=== PATIENT | female | born 1940 ===

== ENCOUNTER → 2021-05-01 10:38 | Outpatient (BNVA) | payer OTHER, MEDICARE, SELFPAY | PROVIDERS: PCP Internal Medicine; Visit Provider Nurse Practitioner Family | DX: M47.27 Other spondylosis with radiculopathy, lumbosacral region (principal); M48.061 Spinal stenosis, lumbar region without neurogenic claudication | CPT/HCPCS: 99202 ==

== ENCOUNTER 2021-08-06 06:19 | Outpatient (REF) | payer MEDICARE, SELFPAY ==
--- NOTE | ~2021-08-06 | FL_ITS ---
EXAMINATION: XR FLUOROSCOPY WITH IMAGES CLINICAL INFORMATION: Spondylolysis with radiculopathy. Lumbosacral. COMPARISON: None. TECHNIQUE: Fluoroscopy performed by (not listed). Fluoroscopy time: 0.4 minutes DAP: 7.04 Gycm2 Images: 2 FL/FL guidance in treatment room FINDINGS/IMPRESSION: Fluoroscopy was performed for procedural guidance. Please refer to the procedure report for more detailed findings.
== END 2021-08-06 06:20 | disposition home or self-care (01) ==
LOC: HO.RADIR 06:19
PROVIDERS: Visit Provider Anesthesiology
DX: M47.27 Other spondylosis with radiculopathy, lumbosacral region (principal); M48.061 Spinal stenosis, lumbar region without neurogenic claudication
CPT/HCPCS: 64483; J3300; Q9967

== ENCOUNTER → 2021-09-04 10:19 | Outpatient (BNVA) | payer MEDICARE, SELFPAY | PROVIDERS: PCP Internal Medicine; Visit Provider Anesthesiology | DX: M47.27 Other spondylosis with radiculopathy, lumbosacral region (principal); M48.061 Spinal stenosis, lumbar region without neurogenic claudication; Z79.82 Long term (current) use of aspirin; Z79.899 Other long term (current) drug therapy | CPT/HCPCS: Q3014 ==

== ENCOUNTER 2025-09-07 12:34 | Outpatient (AMB) | payer MEDICARE, SELFPAY ==
--- NOTE | 2025-09-07 13:01 | A.PHYSOV_ITS ---
Vital Signs 09/07/25 13:09 Height 5 ft 4 in Weight 169 lb BMI 29.0 Intake Visit Reasons: NPV- Kamryn referral arthralgia Intake Note: Patient is a 84 year old female here today for new patient office visit. She presents today with multiple joint pains. Machine Shop Lead Man Required: No Machine Shop Lead Man Services: Machine Shop Lead Man Offered & Declined Machine Shop Lead Man Name: Patient is here with Jeannie Accompanied by: Grand Child Allergies fish derived Allergy (Unknown, Verified 09/04/25 12:21) Unknown HPI Comments Details: History of Present Illness The patient is an 85-year-old female presenting with neck pain, knee pain, and hand numbness. The neck pain is chronic and managed by Orthopedic healthcare providers. Knee pain is treated with medication, but cortisone injections have not been administered. Hand numbness is a recent issue, with a ganglion cyst identified on the right pinky finger, causing discomfort during gripping activities. Carpal tunnel syndrome has been confirmed with EMG testing, and cortisone injections have been tried without lasting relief. Patient is requesting cortisone injection to both knees as well as aspiration of her right hand ganglion. She has a pain level today of 7/10. She denies any recent trauma. I reviewed no prior consultation. [facility] Surgical History (Updated 09/07/25 @ 13:12 by Mckayla Cabello MA) Deviated septum (Unknown) H/O vaginal surgery History of cataract surgery (Unknown) H/O heart surgery (Unknown) Social History Alcohol intake: current Alcohol intake frequency: does not drink Patient Tobacco Use Status: Former Tobacco user Review of Systems Narrative Review of Systems - Musculoskeletal: Reports neck pain, knee pain, and hand numbness. - Neurological: Reports numbness in hands, particularly at night. Physical Exam Exam Exam: Physical Exam Cervical Spine: Nontender to palpation. She has limited range of motion at end range throughout. Special Tests: Axial Compression test: Negative Spurlings test: Negative Lhermitte's sign is Negative Upper Extremities: Examination of her right hand, there is no visible deformity. She does have swelling over the volar aspect between the 4th and 5th digit consistent with ganglion. Full range of motion of her digits in all planes. Equal planning intern strength bilaterally. Neuro: Sensation: Intact to upper extremities bilateral to light touch Strength C5 (Elbow Flexion): 5/5 on the left and 5/5 on the right. C6 (Elbow Ext): 5/5 on the left and 5/5 on the right. C7 (Elbow Ext): 5/5 on the left and 5/5 on the right. C8 (Finger Flex): 5/5 on the left and 5/5 on the right. T1 (Finger Abd/Add): 5/5 on the left and 5/5 on the right. DTR: C5 (Biceps): Left 2 Right 2 C6 (Brachioradialis): Left 2 Right 2 C7 (Triceps): Left 2 Right 2 Hendrix sign: Negative No pathologic clonus. No involuntary movement. Examination of both knees, there is no visible swelling or deformity. No she is tender to the medial joint line bilaterally. Full range of motion of her knees in flexion and extension. Her ligaments are intact. She does have pain with Jerry testing no calf pain or edema. Vital Signs: BMI result Body Mass Index 29.0 Office Procedures AMB Ganglion Cyst The patient was educated about the risks, complications and benefits of ganglion cyst aspiration. She is eager to proceed. She was cleansed over the volar aspect of her hand with Betadine. She was then anesthetized with ethyl chloride. Aspirated 0.5 mL of clear gelatinous fluid fundal ganglion cyst. Patient was cleansed with an alcohol prep and a Band-Aid was applied. She tolerated procedure without immediate complication. Aspiration and/or injection of ganglion cyst(s) any location Procedure code (CPT) selection complete Office Meds ethyl chloride 100 % topical spray Performing Provider: REMINGTON Mason Performing Location: [facility] Administered by: REMINGTON Mason on 09/07/25 13:39 Dose Route Admin Location Dispensed Lot Number Expiration Date [facility] Supervisor [employer] 1 appl topical 116 mL [id number] [employer]. Assessment & Plan Assessment & Plan (1) Ganglion cyst of joint of finger of right hand: Code(s): M67.441 - Ganglion, right hand Category: Medical (2) Bilateral primary osteoarthritis of knee: Code(s): M17.0 - Bilateral primary osteoarthritis of knee Category: Medical Plan Pain Management - Affect: Pain impacts daily activities, particularly gripping and walking. - Analgesia: Medications prescribed for knee pain, cortisone injections for hand pain. - Adverse Effects: None reported. - Activities of Daily Living: Pain affects walking and gripping objects. - Aberrant Drug Related Behaviors: None reported. Plan Patient was informed and verbally consented to the use of an ambient scribe for clinic note documentation during this visit. Ms. Garza is an 85-year-old female seen in consultation today for chief complaint of swelling to the right hand as well as bilateral knee pain. She was educated about course were condition and treatment options. Today she consented to ganglion cyst aspiration. She was given post aspiration instructions. Recommend: Moist heat compresses for 15 minutes. I recommend limiting her activity as to not exacerbate assist at this time. Recommend follow-up in 2-4 weeks for re-evaluation. That point we will consider corticosteroid injection to both knees. She has had extensive treatment with the hand specialist, recommend she continue that treatment and she may need further treatment including carpal tunnel surgery. We discussed the benefits of proper nutrition and exercise to maintain a healthy body weight to improve longevity and function. We also discussed the benefits of proper lifting techniques, core strengthening and proper posture. Thank you for allowing me to participate in the care of your patient. Patient Instructions - Monitor hand symptoms and report any changes or worsening. - Return for follow-up if symptoms persist or worsen. Orders: Orders AMB Ganglion Cyst Injection/Aspiration Today M67.441 - Ganglion, right hand Coding Level of Care Code Tele New Pt Level 4 (82451) Diagnoses Ganglion cyst of joint of finger of right hand M67.441 Bilateral primary osteoarthritis of knee M17.0 CPT Codes Ganglion Cyst Aspiration/injection - [id number]: [id number] Aspiration and/or injection of ganglion cyst(s) any location ([id number])
[2025-09-07 13:09] VITALS: BMI 29.0
--- OUTSIDE RECORDS SUMMARY | 2025-09-07 15:44 | XMS_ITS | Clinical Summary ---
Author Organization [facility] Address [address] [place] [address] Care Team Providers Care Travel Counselor Name Role Phone Lorenzo Kraft MD Primary Care Provider [phone] Social History Tobacco Use Types Packs/Day Years Used Date Smoking Tobacco: Never Assessed Sex and Gender Information Value Date Recorded Sex Assigned at Not on file Gender Identity Not on file Sexual Orientation Not on file Plan of Treatment Health Maintenance Due Date Last Done Comments COVID-19 Vaccine (#1) 03/05/1941 Depression Screening 1954 Preventative Health Evaluation 1960 DTap / Tdap / Td (1 - Tdap) 1961 Shingrix-Zoster Vaccine (1 of 2) 1992 Fall Risk Assessment 2007 Osteoporosis Screening (DEXA Scan) 2007 RSV Adult > 60+ Yrs or (1 - 1-dose 75+ series) 2017 Influenza Vaccine (#1) 2025 0, 08/15/2019, 07/30/2018, Additional history exists Pneumococcal Vaccine Completed 11/05/2016, 03/08/20 10 Hepatitis B Vaccines Aged Out No long er eligible based on patient's age to complete this topic RSV Ped < 20 months Aged Out No longe r eligible based on patient's age to complete this topic Care Teams Travel Counselor Relationship Specialty Start Date End Date Lorenzo Kraft MD PCP - General Internal Medicine 01/29/21
--- OUTSIDE RECORDS SUMMARY | 2025-09-07 15:44 | XMS_ITS | Clinical Summary ---
Author Organization [facility] Address [address] [place] [phone] Phone Care Team Providers Care Filbert Grower Name Role Phone Anh Domingo MD Primary Care Prov ider Allergies Active Allergy Reactions Criticality Noted Date Comments Fish Derived 10/03/2015 Cod fish Medications ACETAMINOPHEN ORAL Take by mouth. Activ e albuterol HFA (PROAIR HFA ; PROVENTIL HFA ; VENTOLIN HFA) 90 mcg/actuation inhaler Inhale 2 Puffs into the lungs every 6 hours as needed for Cough or Wheezing. 07/14/20 23 Active miscellaneous medical supply misc 1 drop. Blood Glucose Calibration (OT ULTRA/FASTTK CNTRL SOLN) Solution 1 Drop by In Vitro route See Admin Instructions. USE WITH EVERY NEW BOTTLE OF STRIPS DX E11.49 12/01/19 17 Active lancets (OneTouch Delica Plus Lancet) [address] 1 Each onto the skin daily. Use to test fasting blood sugar 1 time daily 07/14/20 23 Active nitroglycerin (NITROSTAT) 0.4 mg SL tablet ONE TABLET UNDER TONGUE NEEDED FOR CHEST PAIN EVERY 5 MINUTES NEEDED FOR CHEST PAIN 12/27/19 20 Active propylene glycol/peg 400/PF (SYSTANE, PF, OPHT) apply to the eye. Active levothyroxine (SYNTHROID, LEVOTHROID) 125 mcg tablet Take 1/2 tablet every day. 45 tablet 3 01/18/20 25 Active OneTouch Ultra Test test strip Use as instructed 100 each 2 01/25/20 25 Active lisinopriL (PRINIVIL,ZES TRIL) 10 mg tablet Take 0.5 tablets (5 mg total) by mouth 1 (one) time each day. 15 tablet 11 04/26/20 25 Active diclofenac (VOLTAREN) 1 % topical gel Apply 4 g topically 2 (two) times a day. 100 g 2 06/27/20 25 026 Active fluticasone propionate (FLONASE) 50 mcg/actuation nasal spray INSTILL 2 SPRAYS INTO EACH NOSTRIL ONCE DAILY. SHAKE GENTLY. BEFORE FIRST USE, PRIME PUMP. AFTER USE, CLEAN TIP AND REPLACE CAP. 48 g 1 06/29/20 25 Active amLODIPine (NORVASC) 5 mg tablet TAKE 1 TABLET BY MOUTH ONCE DAILY 90 tablet 1 08/16/20 25 Active metoprolol succinate (TOPROL-XL) 200 mg 24 hr tablet TAKE 1 TABLET BY MOUTH DAILY. DO NOT CRUSH OR CHEW. 90 tablet 1 08/16/20 25 Active aspirin 81 mg EC tablet TAKE 1 TABLET BY MOUTH ONCE DAILY 90 tablet 1 08/16/20 25 Active Vitamin D3 25 mcg (1,000 unit) capsule TAKE (1) CAPSULE BY MOUTH DAILY 90 capsule 1 08/16/20 25 Active rosuvastatin (CRESTOR) 20 mg tablet TAKE 1 TABLET BY MOUTH DAILY AT BEDTIME 90 tablet 1 08/16/20 25 Active cetirizine (ZyrTEC) 10 mg tablet TAKE 1 TABLET BY MOUTH EVERY DAY. 90 tablet 1 08/16/20 25 Active gabapentin (NEURONTIN) 100 mg capsule Take 1 capsule (100 mg total) by mouth at bedtime as needed (Joints pain). 30 each 08/30/20 25 Active gabapentin (NEURONTIN) 100 mg capsule Take 1 capsule (100 mg total) by mouth at bedtime as needed (Joints pain). 60 each 06/27/20 25 025 Discontinued(Re order) amLODIPine (NORVASC) 5 mg tablet TAKE 1 TABLET BY MOUTH ONCE DAILY 30 tablet 07/20/20 25 025 Discontinued metoprolol succinate (TOPROL-XL) 200 mg 24 hr tablet TAKE 1 TABLET BY MOUTH DAILY. DO NOT CRUSH OR CHEW. 30 tablet 07/20/20 25 025 Discontinued aspirin 81 mg EC tablet TAKE 1 TABLET BY MOUTH ONCE DAILY 30 tablet 07/20/20 25 025 Discontinued Vitamin D3 25 mcg (1,000 unit) capsule TAKE (1) CAPSULE BY MOUTH DAILY 30 capsule 07/20/20 025 Discontinued rosuvastatin (CRESTOR) 20 mg tablet TAKE 1 TABLET BY MOUTH DAILY AT BEDTIME 30 tablet 07/20/20 25 025 Discontinued cetirizine (ZyrTEC) 10 mg tablet TAKE 1 TABLET BY MOUTH EVERY DAY. 30 tablet 07/20/20 025 Discontinued Active Problems Problem Noted Date Diagnosed Date HAILY (acute kidney injury) ([facility] V24) 02/16/20 Aneurysm of ascending aorta ([facility] V24) 2022 Overview (08/23/2024): Last Assessment & Plan: The patient has a history of an ascending aorta dilation. The ascending aorta measured 3.9 cm on echocardiogram done in 2022. Will order new echocardiogram to reevaluate her ascending aorta diameter. Assessment & Plan (08/30/2025 11:02 AM EST): The patient was found to have a very mild dilation of the ascending aorta at 3.9 cm on the echocardiogram done in February 2024. Will order an echocardiogram to reevaluate her ascending aorta diameter. Orders: Transthoracic echocardiogram (TTE) complete with PRN contrast, bubble, strain, and 3D order panel; Future perflutren lipid microsphere (DEFINITY) 1.3 mL in sodium chloride 0.9% 8.7 mL injection Assessment & Plan (12/26/2024 2:38 PM EST): Recent echocardiogram February 2024 showed mild ascending aorta at 3.9 cm. We will continue to monitor with periodic echocardiograms to monitor for progression. PAD (peripheral artery disease) ([facility] V24) CAD (coronary artery disease) 03/08/2021 Overview (08/23/2024): Last Assessment & Plan: The patient has a history of coronary artery disease status post CABG x 1 ([place] to LAD) in 1990. Her last ischemic evaluation was a nuclear stress test in January 2022 that did not show any evidence of ischemia or infarct. On today's visit, the patient states that she has been having symptoms of atypical chest discomfort as well as symptoms of exertional dyspnea. The patient is currently on antianginal therapy with amlodipine 5 mg orally daily and Toprol 200 mg orally daily. Given her symptoms and history of CAD, we will start the patient on isosorbide mononitrate 30 mg orally daily. Will also order a new nuclear stress test to rule out the presence of ischemia as a cause of her symptoms. Will also update her echocardiogram. The patient will continue on her antiplatelet therapy with aspirin as well as her statin therapy with rosuvastatin. The patient has a history of coronary artery disease. During today's visit, we reviewed the warning signs that should prompt an urgent medical evaluation. Specifically, we discussed that the patient should go to the hospital if she develops any chest discomfort at rest or worsening chest discomfort with exertion. Assessment & Plan (08/30/2025 11:02 AM EST): The patient has a history of coronary artery disease. The patient's last ischemic evaluation with a nuclear stress test in January 2024 did not show any evidence of ischemia or infarct on the myocardial perfusion imaging. Currently, the patient denies any chest pain at rest or with exertion. The patient continues on secondary preventive therapy for CAD, including: aspirin, statin and beta blake. Will continue current therapy. Assessment & Plan (12/26/2024 2:38 PM EST): The patient has a history of coronary artery disease status post CABG x 1 with [place] to LAD 1990. She recently underwent a nuclear stress test January 2024 which was noted to be normal with no areas of ischemia or infarction. Recent echocardiogram showed normal LV function. She will continue her current medical therapy with amlodipine, aspirin, statin and beta-blake as prescribed. No changes to medical therapies. Patient advised to seek emergency medical attention by calling 911 if they were to develop severe dyspnea, chest pain that did not resolve with rest or nitroglycerin, or if they were to faint. Orders: ECG 12 lead Fibromyalgia 04/27/2020 Microalbuminuria 03/03/2016 Hearing loss on left 02/18/2016 Cataract 10/30/2015 CKD (chronic kidney disease) stage 3, GFR 30-59 ml/min ([facility] V24, [facility] V28) 10/30/2015 Assessment & Plan (06/27/2025 11:46 AM EDT): Instructed to avoid nephrotoxics. Not taking Farxiga prescribed by nephrology. Will follow up with the specialist. Assessment & Plan (10/03/2024 2:18 PM EST): Instructed to avoid nephrotoxics. Not taking Farxiga prescribed by nephrology. Will follow up with the specialist. CTS (carpal tunnel syndrome) 10/30/2015 Overview (08/23/2024): 02/08 EMG/NCT: mild carpal tunnel syndrome on the right Diverticulosis 10/30/2015 Migraine 10/30/2015 Osteoporosis 10/30/2015 Type 2 diabetes mellitus wit h cataract ([facility] V24, [facility] V28) 10/30/2015 Type 2 diabetes mellitus wit h renal manifestations ([facility] V24, [facility] V28) 10/30/2015 Assessment & Plan (06/27/2025 11:46 AM EDT): Good control of diabetes. Not on medications. Lifestyle modifications. Patient will continue with yearly Podiatric and Ophthomologic evaluations. Will continue Angiotensin Converting Enzyme. Patient will follow up in 6 months we will recheck an A1c, BMP, before next visit. Orders: Microalbumin creatinine urine ratio; Future Ambulatory referral to Podiatry; Future Comprehensive metabolic panel; Future Hemoglobin A1c; Future Lipid panel with reflex to direct LDL; Future Assessment & Plan (10/03/2024 2:18 PM EST): Good control of diabetes. Not on medications. Lifestyle modifications. Patient will continue with yearly Podiatric and Ophthomologic evaluations. Will continue Angiotensin Converting Enzyme. Patient will follow up in 6 months we will recheck an A1c, BMP, before next visit. Orders: Comprehensive metabolic panel; Future Thyroid stimulating hormone with reflex to free t4 and free t3; Future Hemoglobin A1c; Future Vaginal prolapse 10/30/2015 Overview (08/23/2024): Pessary Allergic rhinitis 10/03/2015 Heartburn 10/03/2015 Hyperlipidemia with target LDL less than 70 06/2015 Overview (08/23/2024): IMO update Last Assessment & Plan: The patient has a history of hyperlipidemia. The patient is currently on rosuvastatin 20 mg orally daily. We will order a new lipid panel to evaluate the patient's current lipid control and determine if any adjustment are needed in the lipid lowering therapy. Assessment & Plan (08/30/2025 11:02 AM EST): The patient has a history of hyperlipidemia. She also has a history of CAD. Her LDL target is 70 or below. The patient is on rosuvastatin 20 mg orally daily. Last lipid panel showed an adequate cholesterol control. Will continue current therapy. Assessment & Plan (06/27/2025 1:36 PM EDT): Given the patients cardiac risk profile the patient requires an LDL cholesterol of less than 70, on target. I have instructed the patient on the principles of a low cholesterol diet and the importance of regular exercise. Continue rosuvastatin 20 mg a day. Assessment & Plan (12/26/2024 2:38 PM EST): Patient has history of hyperlipidemia as well as a history of coronary artery disease. Last fasting lipid panel showed an LDL cholesterol September. This is at goal. She will continue her current statin therapy as prescribed. Assessment & Plan (10/03/2024 2:18 PM EST): Given the patients cardiac risk profile the patient requires an LDL cholesterol of less than 70, at target. I have instructed the patient on the principles of a low cholesterol diet and the importance of regular exercise. Continue rosuvastatin 20 mg a day. Orders: Comprehensive metabolic panel; Future Hypertension 10/03/2015 Overview (08/23/2024): Last Assessment & Plan: The patient has a history of arterial hypertension. The patient's blood pressure today was noted to be well controlled. We'll continue the current antihypertensive medication regimen. Assessment & Plan (08/30/2025 11:02 AM EST): The patient has a history of arterial hypertension. The patient's blood pressure today was noted to be well controlled. We'll continue the current antihypertensive medication regimen. Assessment & Plan (06/27/2025 1:36 PM EDT): The patient's antihypertensive regimen is based on their underlying medical issues. At the time of this visit, the blood pressure is well controlled on the current medications. The patient is instructed to follow a low sodium diet. Will continue Amlodipine 5mg, Lisinopril 10 mg a day, Metoprolol 200mg . Assessment & Plan (12/26/2024 2:38 PM EST): Blood pressure well-controlled today. She will continue her current antihypertensive medication regimen as prescribed. Assessment & Plan (10/03/2024 2:18 PM EST): The patient's antihypertensive regimen is based on their underlying medical issues. At the time of this visit, the blood pressure is well controlled on the current medications. The patient is instructed to follow a low sodium diet. Will continue Lisinopril 10 mg a day, Metoprolol 200mg . Orders: Comprehensive metabolic panel; Future Thyroid stimulating hormone with reflex to free t4 and free t3; Future Hypothyroidism 10/03/2015 Assessment & Plan (06/27/2025 1:36 PM EDT): Last TSH: 1.3 Within normal limits, stable. Continue same dose of levothyroxine. Assessment & Plan (10/03/2024 2:18 PM EST): Last TSH: Within normal limits, stable. Continue same dose of levothyroxine. Orders: Thyroid stimulating hormone with reflex to free t4 and free t3; Future Type 2 diabetes mellitus wit h neurological manifestations, controlled (CMS/HCC V24, CMS/HCC V28) 10/03/2015 Overview (08/23/2024): HgA1C 6.6 12/01/14 Vitamin D deficiency 10/03/2015 Resolved Problems Problem Noted Date Diagnosed Date Resolved Date Dyspnea 05/13/2023 12/26/2024 Overview (08/23/2024): Last Assessment & Plan: 82-year-old woman with significant history of status post CABG in 1990, ex- smoker less than [id number] who now presents with progressive dyspnea on exertion. Given the results of the pulmonary function test I reassured her that she does not have COPD or asthma. Given that she finds some improvement with the albuterol I advised her to continue using it. I will do a chest x-ray but on physical examination she does not have any signs of interstitial lung disease. Causes of restriction could be associated with her history of cardiovascular disease. She has already has a work-up from cardiology that did not show signs of ischemia but she may need cardiac catheterization to completely exclude this possibility. Depending of the results of the chest x-ray I will decide if she needs further testing. I will see her back in 3 months. Old [place] (myocardial infarction) 10/03/2015 12/26/2024 Overview (08/23/2024): CABG x1 1990 Encounters Date Type Department Care Team Description 08/30/2025 10:50 AM EST Office Visit [facility] [address] [place] [address] Dominick Romero MD Coronary artery disease involving [place] coronary artery of [place] heart without angina pectoris (Primary Dx); Aneurysm of ascending aorta without rupture ([facility] V24); Primary hypertension; Hyperlipidemia with target LDL less than 70 08/17/2025 Telephone Adult Medicine [address] [phone] Ahn Domingo MD 06/27/2025 11:15 AM EDT Office Visit Adult Medicine [address] [phone] Anh Domingo MD Type 2 diabetes mellitus with stage 3 chronic kidney disease, without long-term current use of insulin, unspecified whether stage 3a or 3b CKD ([facility] V24, [facility] V28) (Primary Dx); Primary hypertension; Hyperlipidemia with target LDL less than 70; Stage 3a chronic kidney disease ([facility] V24, [facility] V28); Hypothyroidism, unspecified type; Arthralgia, unspecified joint; Screening for depression from Last 3 Months Immunizations Immunization Administration Dates Next Due Influenza trivalent, 0.5mL ( Fluad) 65yo and older 10/03/2024,07/23/2022,07/15/2021,08/03,08/15/2019,07/30/2018 Influenza trivalent, 0.5mL, preservative free (Fluarix; FluLaval; Fluzone) ages 6mo and older (Afluria) 3 years and older 08/30/2014 Pneumococcal conjugate 13 va lent (Prevnar 13, PCV13) 2mo and older 11/05/2016 Pneumococcal polysaccharide 23 valent (Pneumovax 23) 2yo and older 03/08/2010 Td Tetanus diptheria (Tdvax) 7yo and older 06/24/2013 Tdap Tetanus diptheria acell ular pertussis (Boostrix; Adacel) 7yo and older 03/01/2024 Surgical History Surgery Date Site/Laterality Comments CORONARY ARTERY BYPASS GRAFT 1990 PROCEDURE: HISTORICAL CABG TUBAL LIGATION PROCEDURE: HISTORICAL TUBAL LIGATION OTHER SURGICAL HISTORY PROCEDURE: ---- OTHER ----; COMMENT: nasal sinus surgery OTHER SURGICAL HISTORY 03/16/2014 PROCEDURE: MAMMOGRAM FLEXIBLE SIGMOIDOSCOPY 11/29/2013 PROCEDURE: HISTORICAL FLEXIBLE SIGMOIDOSCOPY CATARACT EXTRACTION 2016 PROCEDURE: HISTORICAL CATARACT REMOVAL Medical History Medical History Date Comments Allergic rhinitis 10/03/2015 DX:Allergic rh initis Heartburn 10/03/2015 DX:Heartburn Historical Medical DX 10/03/2015 DX:Hyperli pidemia LDL goal < 70 Hypertension 10/03/2015 DX:Hypertension Hypothyroidism 10/03/2015 DX:Hypothyroidis m Vitamin D deficiency 10/03/2015 DX:Vitamin D deficiency Diverticulosis 10/30/2015 DX:Diverticulosi s CTS (carpal tunnel syndrome) 10/30/2015 DX: CTS (carpal tunnel syndrome) Osteoporosis 10/30/2015 DX:Osteoporosis Migraine 10/30/2015 DX:Migraine Vaginal prolapse 10/30/2015 DX:Vaginal prol apse; COMMENT: Pessary Cataract 10/30/2015 DX:Cataract Type 2 diabetes mellitus wit h neurological manifestations, controlled ([facility] V24, [facility] V28) 10/03/2015 DX: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, controlled ([facility]) Type 2 diabetes mellitus wit h cataract ([facility] V24, [facility] V28) 10/30/2015 DX:Type 2 diabetes mellitus with cataract ([facility]) [place] (myocardial infarction) 10/03/2015 D X:[place] (myocardial infarction); COMMENT: CABG x1 1990 CKD (chronic kidney disease) stage 3, GFR 30-59 ml/min ([facility] V24, [facility] V28) 10/30/2015 DX:CKD (chronic kidney disea se) stage 3, GFR 30-59 ml/min ([facility]) Type 2 diabetes mellitus wit h renal manifestations ([facility] V24, [facility] V28) 10/30/2015 DX:Type 2 diabetes mellitus with renal manifestations ([facility]) Family History Medical History Relation Name Comments Hyperthyroidism Daughter Arthritis Father prostate cancer Coronary artery disease Mother arth ritis Stomach cancer Mother Coronary artery disease Sister 1 Diabetes Sister 2 Hypertension Sister 3 mother Arthritis Sister 4 Coronary artery disease Uncle moth er's side Breast cancer Neg Hx Stroke Neg Hx Relation Name Status Comments Daughter Father Mother Sister 1 Sister 2 Sister 3 Sister 4 Uncle Social History Tobacco Use Types Packs/Day Years Used Date Smoking Tobacco: Former Cigarettes 1 30 0 10/26/1960 - 10/26/1990 Smokeless Tobacco: Never Tobacco Cessation:Counseling Given: Not Answered Alcohol Use Standard Drinks/Week Comments Not Currently 0 (1 standard drink = 0.6 oz pur e alcohol) Housing Instability Answer Date Recorde d Are you worried that in the next 2 months you may not have stable housing? No 09/27/2024 Food Access & Nutrition Answer Date Rec orded Do you have access to a vari ety of food including fruits and vegetables? Yes 09/27/2024 Access to Healthcare Answer Date Record ed Within the last 3 months, ho w many times did you visit the emergency department for your medical care? 0 09/27/2024 Health Literacy Answer Date Recorded How often do you need to hav e someone help you when you read instructions, pamphlets, or other written material from your doctor or pharmacy? Always 09/27/2024 Caregiver: How often do you need to have someone help you when you read instructions, pamphlets, or other written material from your doctor or pharmacy? Not on file 09/27/2024 Financial Risk Answer Date Recorded How hard is it for you to pa y for the very basics like food, housing, medical care, and air conditioning / heating? Not very hard 09/27/2024 Transportation Answer Date Recorded Has the lack of transportati on kept you from meetings, work, or from getting things needed for daily living? No Has the lack of transportati on kept you from medical appointments or from getting medications? No 09/27/2024 Social Isolation Answer Date Recorded How often do you feel lonely or isolated from those around you? Unable to respond 09/27/2024 Food Risk Answer Date Recorded Within the past 12 months we worried whether our food would run out before we got money to buy more. Never true 09/27/2024 Within the past 12 months th e food we bought just didn't last and we didn't have money to get more. Never true 09/27/2024 Dependent Care Answer Date Recorded Do you need help finding or paying for care for your loved ones. For example, child welfare specialist or elderly care for an older adult? No 09/27/2024 Education Answer Date Recorded Do you think completing more education or training, like finishing a GED, going to college, or learning a trade, would be helpful for you? No 09/27/2024 Employment and Income Answer Date Recor ded During the last four weeks, have you been actively looking for work? No 09/27/2024 Living Situation Answer Date Recorded What is your living situation? Unrecognized valu e 09/27/2024 Comments No Sex and Gender Information Value Date Recorded Sex Assigned at Not on file Legal Sex Female 1:06 PM EST Gender Identity Not on file Sexual Orientation Not on file Obstetrics History Last Filed Vital Signs Vital Sign Reading Time Taken Comments Blood Pressure 118/60 08/30/2025 10:35 AM EST Pulse 63 08/30/2025 10:35 AM EST Temperature 36.4 C (97.5 F) 06/27/2025 11:07 AM EDT Respiratory Rate 14 06/27/2025 11:07 AM EDT Oxygen Saturation 97% 08/30/2025 10:35 AM EST Inhaled Oxygen Concentration - - Weight 76.2 kg (168 lb) 08/30/2025 10:35 AM EST Height 162.6 cm (5' 4 ) 08/30/2025 10:35 AM EST Body Mass Index 28.84 08/30/2025 10:35 AM EST Plan of Treatment Upcoming Encounters Date Type Department Care Team (Late st Contact Info) Description 11/09/2025 10:30 AM EST Ancillary Procedure [facility] [address] [place] [id number] 12/25/2025 11:30 AM EST Office Visit Adult Medicine [address] [phone] Anh Domingo MD [address] [place] [address] Health Maintenance Due Date Last Done Comments Zoster Vaccines (1 of 2) 1959 RSV Immunization Adult Patients (1 - 1-dose 75+ series) 2017 Diabetes: Annual Foot Exam 03/01/2025 03/01/2024 Diabetes: Annual Urine Albumin-Creatinine Ratio (uACR) 06/03/2025 06/03/2024 COVID-19 Vaccine ( season) 2025 10/16/2021, 01/08/2021, 12/18/2020 Influenza Vaccine (#1) 2025 , 10/24/2023, 07/23/2022, Additional history exists Social Influencers of Health Screening 09/27/2025 09/27/2024 Medicare Annual Wellness Visit 10/03/2025 10/03/2024 Diabetes: Blood Sugar Control Test (HGBA1C) 10/18/2025 04/18/2025, 09/26/2024, 03/01/2024, Additional history exists Diabetes: Annual GFR (Glomerular Filtration Rate) 04/18/2026 04/18/2025, 09/26/2024, 03/01/2024, Additional history exists Hypertension/CHF/CAD Annual BMP Blood Test 04/18/2026 04/18/2025, 09/26/2024, 03/01/2024, Additional history exists Falls Risk Assessment 06/27/2026 06/27/2025, 024 Diabetes: Annual Retina Eye Exam 07/19/2026 07/19/2025, 07/18/2024 Osteoporosis Screening (Bone Density Screening) 11/25/2027 11/25/2022, 05/04/2017 Cholesterol Screening (Lipid Panel) 09/26/2029 09/26/2024, 03/01/2024, 03/01/2024 DTaP,Tdap,and Td Vaccines (3 - Td or Tdap) 03/01/2034 03/01/2024, 06/24/2013 Pneumococcal Vaccine: 50+ Years Completed 11/05/2016, 03/08/2010 Depression Screening Completed 06/20/2025, 10/01/20 23 HIB Vaccines Aged Out No longer eligi ble based on patient's age to complete this topic HPV Vaccines Aged Out No longer eligi ble based on patient's age to complete this topic Hepatitis A Vaccines Aged Out No long er eligible based on patient's age to complete this topic Hepatitis B Vaccines Aged Out No long er eligible based on patient's age to complete this topic IPV Vaccines Aged Out No longer eligi ble based on patient's age to complete this topic MMR Vaccines Aged Out No longer eligi ble based on patient's age to complete this topic Meningococcal ACWY Vaccine Aged Out N o longer eligible based on patient's age to complete this topic Meningococcal B Vaccine Aged Out No l onger eligible based on patient's age to complete this topic RSV Immunization Patients Under 20 months Aged Out No longer eligible based on patient's age to complete this topic Varicella Vaccines Aged Out No longer eligible based on patient's age to complete this topic Procedures Procedure Name Priority Date/Time Associated Diagnosis Comments EXTERNAL DIABETIC RETINA EYE EXAM 07/19/2025 COMPREHENSIVE METABOLIC PANEL Routine 04/18/2025 9:47 AM EDT Type 2 diabetes mellitus with stage 3 chronic kidney disease, without long-term current use of insulin, unspecified whether stage 3a or 3b CKD (CMS/HCC V24, CMS/HCC V28) Primary hypertension Hyperlipidemia with target LDL less than 70 HEMOGLOBIN A1C Routine 04/18/2025 9:47 AM EDT Type 2 diabetes mellitus with stage 3 chronic kidney disease, without long-term current use of insulin, unspecified whether stage 3a or 3b CKD ([facility] V24, [facility] V28) LIPID PANEL WITH REFLEX TO DIRECT LDL Routine 09/26/2024 3:01 PM EST Type 2 diabetes mellitus with diabetic cataract ([facility] V24, [facility] V28) URINE ALBUMIN CREATININE RATIO Routine 06/03/2024 FALLS RISK ASSESSMENT Routine 03/01/2024 DIABETES FOOT EXAM Routine 03/01/2024 DEPRESSION SCREENING Routine 10/01/2023 DXA BONE DENSITY STUDY 1+ SITS AXIAL SKEL Routine 11/25/2022 2:11 PM EST Asymptomatic menopausal state from Last 3 Months or Most Recently Relevant to Health Maintenance Results * External Diabetic Retina Eye Exam Report (07/19/2025) Anatomical Region Laterality Modality Ultrasound us Provider [facility] US PROCEDURES Final Result * Hemoglobin A1c (04/18/2025 9:47 AM EDT) Hemoglobin A1C 6.1 <6.5 % LAB CHEMISTRY METHOD 04/18/2025 8:45 PM EDT [facility] Mean Bld Glu Estim. 128 mg/dL LAB CHEMISTRY METHOD 04/18/2025 8:45 PM EDT [facility] Blood Venous blood specimen / Unknown Venipuncture / Unknown 04/18/2025 9:47 AM EDT 04/18/2025 9:47 AM EDT us Anh Domingo MD LAB BLOOD ORDERABL ES Final Result [facility] [address] [place] [address], * (ABNORMAL) Comprehensive metabolic panel (04/18/2025 9:47 AM EDT) Sodium 137 133 - 145 mmol/L LAB CHEMISTRY METHOD 04/18/2025 1:55 PM [facility] Potassium 4.3 3.5 - 5.5 mmol/L LAB CHEMISTRY METHOD 04/18/2025 1:55 PM [facility] Chloride 102 96 - 110 mmol/L LAB CHEMISTRY METHOD 04/18/2025 1:55 PM [facility] CO2 27 21 - 32 mmol/L LAB CHEMISTRY METHOD 04/18/2025 1:55 PM [facility] Anion Gap 8 3 - 11 LAB CHEMISTRY METHOD 04/18/2025 1:55 PM [facility] Glucose 90 70 - 100 mg/dL LAB CHEMISTRY METHOD 04/18/2025 1:55 PM [facility] BUN 21 5 - 25 mg/dL LAB CHEMISTRY METHOD 04/18/2025 1:55 PM [facility] Creatinine 1.02 0.50 - 1.10 mg/dL LAB CHEMISTRY METHOD 04/18/2025 1:55 PM [facility] eGFR 55(L) >=60 mL/min/1. 73m2 LAB CHEMISTRY METHOD 04/18/2025 1:55 PM [facility] Comment:Calculation based on the Chronic Kidney Disease Epidemiology Collaboration (CKD-EPI) equation refit without adjustment for race. BUN/Creatinine Ratio 20.6 LAB CHEMISTRY METHOD 04/18/2025 1:55 PM [facility] Calcium 9.7 8.5 - 10.5 mg/dL LAB CHEMISTRY METHOD 04/18/2025 1:55 PM EDT [facility] AST (SGOT) 20 10 - 42 unit/L LAB CHEMISTRY METHOD 04/18/2025 1:55 PM T [facility] ALT (SGPT) 17 10 - 60 unit/L LAB CHEMISTRY METHOD 04/18/2025 1:55 PM EDT [facility] Alkaline Phosphatase 78 42 - 121 unit/L LAB CHEMISTRY METHOD 04/18/2025 1:55 PM EDT [facility] Total Protein 7.8 6.0 - 8.0 g/dL LAB CHEMISTRY METHOD 04/18/2025 1:55 PM [facility] Albumin 4.0 3.2 - 5.0 g/dL LAB CHEMISTRY METHOD 04/18/2025 1:55 PM [facility] Total Bilirubin 0.7 0.0 - 1.4 mg/dL LAB CHEMISTRY METHOD 04/18/2025 1:55 PM EDT [facility] Blood Venous blood specimen / Unknown Venipuncture / Unknown 04/18/2025 9:47 AM EDT 04/18/2025 9:47 AM EDT us Anh Domingo MD LAB BLOOD ORDERABL ES Final Result [facility] [address] [place] [address], * Lipid panel with reflex to direct LDL (09/26/2024 3:01 PM EST) Cholesterol 151 0 - 200 mg/dL LAB CHEMISTRY METHOD 09/26/2024 6:23 PM EST [facility] Triglycerides 94 0 - 150 mg/dL LAB CHEMISTRY METHOD 09/26/2024 6:23 PM EST [facility] HDL 79 >=40 mg/dL LAB CHEMISTRY METHOD 09/26/2024 6:23 PM EST [facility] LDL Calculated 53 0 - 100 mg/dL LAB CHEMISTRY METHOD 09/26/2024 6:23 PM EST [facility] VLDL Cholesterol Migel 18.8 mg/dL LAB CHEMISTRY METHOD 09/26/2024 6:23 PM EST [facility] Non HDL Chol. (LDL+VLDL) 72 <145 mg/dL LAB CHEMISTRY METHOD 09/26/2024 6:23 PM EST [facility] Chol/HDL Ratio 1.9 0.0 - 4.4 LAB CHEMISTRY METHOD 09/26/2024 6:23 PM EST [facility] Blood Venous blood specimen / Unknown Venipuncture / Unknown 09/26/2024 3:01 PM EST 09/26/2024 3:01 PM EST Anh Domingo MD LAB BLOOD ORDERABL ES Final Result [facility] [address] [place] [address], [place] [phone] * Urine Albumin Creatinine Ratio (06/03/2024) [facility] Urine Albumin Creatinine Ratio abstracted [facility] Provider HEALTH MAINTENANCE Final Result * Falls Risk Assessment (03/01/2024) [facility] Falls Risk Assessment abstracted Result [facility] Provider HEALTH MAINTENANCE Final Result * Diabetes Foot Exam (03/01/2024) [facility] Diabetes: Annual Foot Exam abstracted [facility] Provider HEALTH MAINTENANCE Final Result * Depression Screening (10/01/2023) [facility] Depression Screening abstracted [facility] Provider HEALTH MAINTENANCE Final Result * DXA BONE DENSITY STUDY 1+ SITS AXIAL SKEL (11/25/2022 2:11 PM EST) Anatomical Region Laterality Modality Bone Densitometr y 07/23/2022 1:59 PM EDT Narrative 11/25/2022 4:41 PM EST BONE DENSITY (DEXA) Lumbar Spine T-score is -0.1. (SD relative to 20-29 y/o adult) Z-score is 2.6. (SD relative to age matched peers) This is considered normal by WHO criteria. Left Hip T-score is -0.8. Z-score is 1.3. This is considered normal by WHO criteria. IMPRESSION: This patient is considered to have normal bone density by WHO criteria. [facility] Department of Internal Medicine recommends using National Osteoporosis Foundation (NOF) guidelines in treatment decisions related to osteoporosis. NOF guidelines suggest considering treatment for postmenopausal women and men aged 50 or older presenting with the following: History of hip or vertebral fracture. T-score = -2.5 (DXA) at the femoral neck, total hip, or spine, after appropriate evaluation to exclude secondary causes. Low bone mass (T-score between -1.0 and -2.5 at the femoral neck or spine) AND a 10-year probability of a hip fracture = 3% OR a 10-year probability of a major osteoporosis-related fracture = 20% based on the [place]-adapted WHO algorithm Please note that all treatment decisions require clinical judgment and consideration of individual patient factors, including patient preferences, co-morbidities, previous drug use, risk factors not captured in the FRAX model (e.g., frailty, falls, vitamin D deficiency, increased bone turnover, interval significant decline in bone density) and possible under- or over-estimation of fracture risk by FRAX. Optional alternative screening schedule based on jorgito Carpenter., [facility] November 13, 2011 for patients with osteopenia (based on hip BMD T-score) is as follows: * advanced osteopenia (T scores -2.00 to -2.49), BMD testing every year * moderate osteopenia (T scores -1.50 to -1.99), BMD testing every 5 years mild osteopenia or normal BMD (T scores -1.50 and higher), BMD testing every 15 years Procedure Note Adali Estrada MD - 11/30/2023 BONE DENSITY (DEXA) Lumbar Spine T-score is -0.1. (SD relative to 20-29 y/o adult) Z-score is 2.6. (SD relative to age matched peers) This is considered normal by WHO criteria. Left Hip T-score is -0.8. Z-score is 1.3. This is considered normal by WHO criteria. IMPRESSION: This patient is considered to have normal bone density by WHO criteria. [facility] Department of Internal Medicine recommendsusing National Osteoporosis Foundation (NOF) guidelines in treatment decisions related toosteoporosis. NOF guidelines suggest considering treatment for postmenopausal women and menaged 50 or older presenting with the following: History of hip or vertebral fracture. T-score = -2.5 (DXA) at the femoral neck, total hip, or spine, afterappropriate evaluation to exclude secondary causes. Low bone mass (T-score between -1.0 and -2.5 at the femoral neck or spine)AND a 10-year probability of a hip fracture = 3% OR a 10-year probability of a majorosteoporosis-related fracture = 20% based on the [place]-adapted WHO algorithm Please note that all treatment decisions require clinical judgment andconsideration of individual patient factors, including patient preferences, co- morbidities,previous drug use, risk factors not captured in the FRAX model (e.g., frailty, falls, vitaminD deficiency, increased bone turnover, interval significant decline in bone density) andpossible under- or over-estimation of fracture risk by FRAX. Optional alternative screening schedule based on jorgito Carpenter., NEJJanuary 2011 for patients with osteopenia (based on hip BMD T-score) is as follows: * advanced osteopenia (T scores -2.00 to -2.49), BMD testing every year * moderate osteopenia (T scores -1.50 to -1.99), BMD testing every 5years mild osteopenia or normal BMD (T scores -1.50 and higher), BMD testingevery 15 years Michelle MACEDO [facility] DXA PROCEDURES Final Result from Last 3 Months or Most Recently Relevant to Health Maintenance Insurance [employer] Advance Directives Documents on File Type Date Recorded 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
--- OUTSIDE RECORDS SUMMARY | 2025-09-07 15:44 | XMS_ITS | Encounter Summary ---
Author Organization [facility] Address [address] [place] [address] Care Team Providers Care Interventional Nurse Name Role Phone Anh Domingo MD Primary Care Prov ider Reason for Referral * Consultation (Routine) - Authorized Specialty Diagnoses / Procedures Referred By Contac t Referred To Contact Cardiology Diagnoses Atherosclerotic heart disease of [place] coronary artery without angina pectoris Anh Domingo MD [address] [place] [phone] Phone: tel: fax: Dominick Romero MD [address] [place] [address] Dr [address] [place] [phone] Phone: tel: fax: Referral ID Status Reason Start Date Expiration Date Visits Requested Visits Authorized [id number] Authorized Specialty Services Required 08/17/2026 6 6 Reason for Visit * Reason Onset Date Comments Referral 08/17/2025 Cardiology Insur ance Referral Encounter Details Date Type Department Care Team (Late st Contact Info) Description 08/17/2025 Telephone Adult Medicine [address] [place], [place] [phone] Anh Domingo MD [address] [place], [place] Social History Tobacco Use Types Packs/Day Years Used Date Smoking Tobacco: Former Cigarettes 1 30 0 10/26/1960 - 10/26/1990 Smokeless Tobacco: Never Alcohol Use Standard Drinks/Week Comments Not Currently [...] care for your loved ones. For example, children's entertainer or elderly care for an older adult? [...] on file Sexual Orientation Not on file documented as of this encounter Progress Notes * Ellie Bush - 08/17/2025 11:08 AM EDT What insurance does the patient have today? [facility]or: [facility] Referrals cannot be processed if the insurance is not accurate. If the insurance listed above is NO BILLING INFORMATION FOUND FOR THIS ENCOUNTER then the patients correct insurance must be obtainedand registered in [facility] or their referral can not be processed. Name of person calling to request this referral? Fax -Ekaterina @ [facility] Referred To Provider (Include first and last name): Dominick Decker NPI (if known): [id number] Order/Specialty requested cardiology Chief Complaint (Note: This is not a body part or a procedure): I25.10 Has the patient seen provider for this problem/Dx before? Referred To Provider Address: [address] Referred To Provider Referred To Provider Does patient have an appointment scheduled?: yes If yes, what is the date of the appointment?: 08/30/25 Is this a retro request? no Number of visits requested: 6 Is this appointment related to: MVA or worker compensation? no documented in this encounter Plan of Treatment Upcoming Encounters Date Type Department Care Team (Late st Contact Info) Description 11/09/2025 10:30 AM EST Ancillary Procedure [facility] [place] [address] [place] [address] 12/25/2025 11:30 AM EST Office Visit Adult Medicine [facility] [address] [place] [address] Anh Domingo MD [address] [place] [address] Scheduled Referrals Name Type Priority Associated Diagnoses Order Schedule Ambulatory referral to Cardiology Outpatient Referral Routine Atherosclerotic heart disease of [place] coronary artery without angina pectoris Expected: 08/17/2025, Expires: 08/17/2026 documented as of this encounter Visit Diagnoses Diagnosis Atherosclerotic heart disease of [place] coronary artery without angina pectoris- Primary documented in this encounter Additional Health Concerns Assessment Noted Time PHQ-9 Depression Total Score: 9 06/20/20 25 11:18 AM EDT documented as of this encounter Care Teams Interventional Nurse Relationship Specialty Start Date End Date Anh Domingo MD [address] [place] [address] PCP - General Internal Medicine 04/29/22 documented as of this encounter
== END 2025-09-07 13:44 | disposition home or self-care (01) ==
LOC: HO.HPHYS 12:35
PROVIDERS: PCP Internal Medicine; Visit Provider Physician Assistant
DX: M67.441 Ganglion, right hand (principal); M17.0 Bilateral primary osteoarthritis of knee
CPT/HCPCS: 20612; 99204

== ENCOUNTER → 2025-09-07 12:34 | Outpatient (BNVA) | payer MEDICARE, SELFPAY | PROVIDERS: PCP Internal Medicine; Visit Provider Physician Assistant | DX: M67.441 Ganglion, right hand (principal); M17.0 Bilateral primary osteoarthritis of knee | CPT/HCPCS: 20612; 99202 ==

== ENCOUNTER 2025-09-25 13:38 | Outpatient (AMB) | payer MEDICARE, SELFPAY ==
--- NOTE | 2025-09-25 13:52 | A.PHYSOV ---
Vital Signs 09/25/25 13:53 Height 5 ft 4 in Weight 169 lb BMI 29.0 Intake Visit Reasons: Bilateral knee injections Intake Note: Patient is a 82 year old male here for follow up after 08/12/25 L5-S1 [place]. Signal Worker Required: No Allergies fish derived Allergy (Unknown, Verified 09/04/25 12:21) Unknown PFSH Surgical History Deviated septum (Unknown) H/O vaginal surgery History of cataract surgery (Unknown) H/O heart surgery (Unknown) Social History Alcohol intake: current Alcohol intake frequency: does not drink Patient Tobacco Use Status: Former Tobacco user Physical Exam Vital Signs: BMI result Body Mass Index 29.0 Office Procedures AMB Knee Injection AMB Knee Injection Procedure Details: Bilateral Knee injection: The risks, benefits and complications of the left knee injection were discussed with the patient including but not limited to increased serum glucose, infection, nerve pain, fat atrophy, pigment augmentation, bleeding and pain. All questions were answered to the patient's satisfaction. Verbal consent was obtained. The patient was eager to proceed. Using aseptic technique with Betadine, ethyl chloride was then used to desensitize the skin. Using a 22-gauge needle 40 mg of Kenalog and 3 mL 2% lidocaine were injected into the knee joint. A Band-Aid was applied. Patient tolerated the procedure well without immediate complication. Postinjection instructions were given. The procedure was repeated on the right. Knee Injection - : Bilateral All charges added?: Procedure code (CPT) selection complete Office Meds Kenalog 40 mg/mL suspension for injection Performing Provider: REMINGTON Mason Performing [facility] Document[facility] (not given) by: REMINGTON Mason on 09/25/25 14:22 Dose Route Admin Location Dispensed Lot Number Expiration Date [facility] Nurse Emergency Room 40 mg intra-articular mL Total Dispensed Waste n/a n/a lidocaine (PF) 20 mg/mL (2 %) injection solution Performing Provider: REMINGTON Mason Performing Location: [facility] Documented (not given) by: REMINGTON Mason on 09/25/25 14:22 Dose Route Admin Location Dispensed Lot Number Expiration Date NDC Nurse Emergency Room 60 mg intra-articular mL Total Dispensed Waste n/a n/a Assessment & Plan Assessment & Plan (1) Bilateral primary osteoarthritis of knee: Code(s): M17.0 - Bilateral primary osteoarthritis of knee Category: Medical Plan Ms. Garza is an 85-year-old female seen in evaluation today for bilateral knee osteoarthritis. Today she consented to bilateral knee corticosteroid injection. She was given post-injection instructions, recommend: Moist heat compresses for 15 minutes up to 5 times daily. Continue low-impact activities such as walking, biking and swimming. Follow-up with our office in 3 months as needed. Thank you for allowing me to participate in the care of your patient. Orders: Orders AMB Knee Injection Today M17.0 - Bilateral primary osteoarthritis of knee Medications: New Kenalog (triamcinolone acetonide) 40 mg intra-articular ONCE 1 mL 0RF NS M17.0 - Bilateral primary osteoarthritis of knee lidocaine (PF) 60 mg (3 mL) intra-articular ONCE 3 mL 0RF M17.0 - Bilateral primary osteoarthritis of knee Coding Level of Care Code Procedure Only Diagnoses Bilateral primary osteoarthritis of knee M17.0 CPT Codes AMB Knee Injection - Hip/Bursa Injection - : Bilateral ([id number])
[2025-09-25 13:53] VITALS: BMI 29.0
--- OUTSIDE RECORDS SUMMARY | 2025-09-25 17:12 | XMS_ITS | Clinical Summary ---
Author Organization [facility] Address [address] [place] [address] Care Team Providers Care Minister Of Religion Name Role Phone Lorenzo Kraft MD Primary Care Provider [phone] Social History Tobacco Use Types Packs/Day Years [...] age to complete this topic Care Teams Minister Of Religion Relationship Specialty Start Date End Date Lorenzo Kraft MD PCP - General Internal Medicine 01/29/21
== END 2025-09-25 14:42 | disposition home or self-care (01) ==
LOC: HO.HPHYS 13:38
PROVIDERS: PCP Internal Medicine; Visit Provider Physician Assistant
DX: M17.0 Bilateral primary osteoarthritis of knee (principal)
CPT/HCPCS: 20610

== ENCOUNTER → 2025-09-25 13:38 | Outpatient (BNVA) | payer MEDICARE, SELFPAY | PROVIDERS: PCP Internal Medicine; Visit Provider Physician Assistant | DX: M17.0 Bilateral primary osteoarthritis of knee (principal) | CPT/HCPCS: 20610; J2003; J3301 ==

== ENCOUNTER 2025-10-12 10:00 | Outpatient (AMB) | payer MEDICARE, SELFPAY ==
--- NOTE | 2025-10-12 10:13 | A.PHYSOV_ITS ---
Vital Signs 10/12/25 10:14 Height 5 ft 4 in Weight 169 lb BMI 29.0 Intake Visit Reasons: left wrist injection Intake Note: Patient is a 85 year old female here for left wrist injection. Assignment Desk Assistant Required: No Allergies fish derived Allergy (Unknown, Verified 10/12/25 10:15) Unknown [facility] Surgical History Deviated septum (Unknown) H/O vaginal surgery History of cataract surgery (Unknown) H/O heart surgery (Unknown) Social History Alcohol intake: current Alcohol intake frequency: does not drink Patient Tobacco Use Status: Former Tobacco user Physical Exam Vital Signs: BMI result Body Mass Index 29.0 Office Procedures AMB Ganglion Cyst The patient was educated about the risks, complications and benefits of ganglion cyst aspiration. She is eager to proceed. She was cleansed over the volar aspect of her left wrist with iodine. She was then anesthetized with ethyl chloride. I used an 18 gauge needle to attempt aspiration of what is perceived as a ganglion cyst. No fluid was obtained. The patient was cleansed with an alcohol prep and a Band-Aid was applied. [id number] Aspiration and/or injection of ganglion cyst(s) any location Procedure code (CPT) selection complete Assessment & Plan Assessment & Plan (1) Ganglion cyst of joint of finger of right hand: Code(s): M67.441 - Ganglion, right hand Category: Medical Plan Ms. Garza is an 85-year-old female seen in evaluation today for ganglion cyst volar aspect left wrist. Aspiration was attempted today and no fluid was obtained. Her lesion may be lipoma. Patient is requesting referral to a hand specialist for potential removal. I will place referral today. Patient will keep the area clean and dry. Follow-up with our office as needed. Thank you for allowing me to participate in the care of your patient. Orders: Orders AMB Ganglion Cyst Injection/Aspiration Today M67.441 - Ganglion, right hand Referrals Orthopedics Referral M67.441 - Ganglion, right hand Coding Level of Care Code Procedure Only Diagnoses Ganglion cyst of joint of finger of right hand M67.441 CPT Codes Ganglion Cyst Aspiration/injection - [id number]: [id number] Aspiration and/or injection of ganglion cyst(s) any location ([id number])
[2025-10-12 10:14] VITALS: BMI 29.0
--- OUTSIDE RECORDS SUMMARY | 2025-10-12 12:19 | XMS_ITS | Clinical Summary ---
Author Organization [facility] Address [address] [place] [phone] Phone Care Team Providers Care Horse Breeder Name Role Phone Anh Domingo MD Primary Care Prov ider Allergies Active Allergy Reactions Criticality Noted Date Comments Fish Derived 10/03/2015 Cod fish Medications ACETAMINOPHEN ORAL Take by mouth. Activ e albuterol HFA (PROAIR HFA ; PROVENTIL HFA ; VENTOLIN HFA) 90 mcg/actuation inhaler Inhale 2 Puffs into the lungs every 6 hours as needed for Cough or Wheezing. 3 Active miscellaneous medical supply misc 1 drop. Blood Glucose Calibration (OT ULTRA/FASTTK CNTRL SOLN) Solution 1 Drop by In Vitro route See Admin Instructions. USE WITH EVERY NEW BOTTLE OF STRIPS DX E11.49 7 Active lancets (OneTouch Delica Plus Lancet) [address] 1 Each onto the skin daily. Use to test fasting blood sugar 1 time daily 3 Active nitroglycerin (NITROSTAT) 0.4 mg SL tablet ONE TABLET UNDER TONGUE NEEDED FOR CHEST PAIN EVERY 5 MINUTES NEEDED FOR CHEST PAIN 0 Active propylene glycol/peg 400/PF (SYSTANE, PF, OPHT) apply to the eye. Active levothyroxine (SYNTHROID, LEVOTHROID) 125 mcg tablet Take 1/2 tablet every day. 45 tablet 3 5 Active OneTouch Ultra Test test strip Use as instructed 100 each 2 5 Active lisinopriL (PRINIVIL,ZESTR IL) 10 mg tablet Take 0.5 tablets (5 mg total) by mouth 1 (one) time each day. 15 tablet 11 5 Active diclofenac (VOLTAREN) 1 % topical gel Apply 4 g topically 2 (two) times a day. 100 g 2 5 12/25/19 26 Active fluticasone propionate (FLONASE) 50 mcg/actuation nasal spray INSTILL 2 SPRAYS INTO EACH NOSTRIL ONCE DAILY. SHAKE GENTLY. BEFORE FIRST USE, PRIME PUMP. AFTER USE, CLEAN TIP AND REPLACE CAP. 48 g 1 5 Active amLODIPine (NORVASC) 5 mg tablet TAKE 1 TABLET BY MOUTH ONCE DAILY 90 tablet 1 5 Active metoprolol succinate (TOPROL-XL) 200 mg 24 hr tablet TAKE 1 TABLET BY MOUTH DAILY. DO NOT CRUSH OR CHEW. 90 tablet 1 5 Active aspirin 81 mg EC tablet TAKE 1 TABLET BY MOUTH ONCE DAILY 90 tablet 1 5 Active Vitamin D3 25 mcg (1,000 unit) capsule TAKE (1) CAPSULE BY MOUTH DAILY 90 capsule 1 5 Active rosuvastatin (CRESTOR) 20 mg tablet TAKE 1 TABLET BY MOUTH DAILY AT BEDTIME 90 tablet 1 5 Active cetirizine (ZyrTEC) 10 mg tablet TAKE 1 TABLET BY MOUTH EVERY DAY. 90 tablet 1 5 Active gabapentin (NEURONTIN) 100 mg capsule Take 1 capsule (100 mg total) by mouth at bedtime as needed (Joints pain). 30 each 5 Active Active Problems Problem Noted Date Diagnosed Date HAILY (acute kidney injury) 02/15/2025 Aneurysm of ascending aorta 05/13/2023 Overview (08/23/2024): Last Assessment & Plan: The [...] monitor for progression. PAD (peripheral artery disease) 02/18/2023 CAD (coronary artery disease) 03/08/2021 Overview (08/23/2024): [...] kidney disease) stage 3, GFR 30-59 ml/min 10/30/2015 Assessment & Plan (06/27/2025 11:46 AM [...] 10/30/2015 Osteoporosis 10/30/2015 Type 2 diabetes mellitus with cataract 6 Type 2 diabetes mellitus with renal manifestatio ns 10/30/2015 Assessment & Plan (06/27/2025 11:46 AM [...] diabetes mellitus wit h neurological manifestations, controlled 10/03/2015 Overview (08/23/2024): HgA1C 6.6 12/01/14 Vitamin D deficiency 10/03/2015 Resolved Problems Problem Noted Date Diagnosed Date Resolved Date Dyspnea 05/13/2023 12/26/2024 Overview (08/23/2024): Last Assessment & Plan: 82-year-old woman with significant history of status post CABG in 1990, ex- smoker less than [id number] who now presents with progressive dyspnea on [...] see her back in 3 months. Old MD (myocardial infarction) 10/03/2015 12/26/2024 Overview (08/23/2024): CABG x1 1990 Encounters Date Type Department Care Team Description 08/30/2025 10:50 AM EST Office Visit [facility] [address] [place] [phone] Dominick Romero MD Coronary artery disease involving [place] coronary artery of [place] heart without angina pectoris (Primary Dx); Aneurysm of ascending aorta without rupture ([facility] V24); Primary hypertension; Hyperlipidemia with target LDL less than 70 08/17/[address] [phone] Anh Domingo MD from Last 3 Months Immunizations Immunization Administration [...] diabetes mellitus wit h neurological manifestations, controlled ([facility] V24, [facility] V28) 10/03/2015 DX: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, controlled (HCC) Type 2 diabetes mellitus wit h cataract ([facility] V24, [facility] V28) 10/30/2015 DX:Type 2 diabetes mellitus with cataract ([facility]) Old MD (myocardial infarction) 10/03/2015 D X:Old MD (myocardial infarction); COMMENT: CABG x1 1990 CKD (chronic kidney disease) stage 3, GFR 30-59 ml/min ([facility] V24, [facility] V28) 10/30/2015 DX:CKD (chronic kidney disea se) stage 3, GFR 30-59 ml/min ([facility]) Type 2 diabetes mellitus wit h renal manifestations ([facility] V24, [facility] V28) 10/30/2015 DX:Type 2 diabetes mellitus with renal manifestations ([facility]) Family History Medical History Relation Name Comments [...] Record ed Within the last 3 months, fariha soria many times did you visit the emergency [...] for your loved ones. For example, children's institution attendant or elderly care for an older adult? [...] on file Sexual Orientation Not on file Last Filed Vital Signs Vital Sign Reading [...] Description 11/09/2025 10:30 AM EST Ancillary Procedure [facility] [address] [place] [address] 12/25/2025 11:30 AM EST Office Visit Adult Medicine [address] [phone] Anh Domingo MD [address] [place] [address] Health Maintenance Due Date Last Done Comments [...] unspecified whether stage 3a or 3b CKD ([facility] V24, [facility] V28) Primary hypertension Hyperlipidemia with target LDL less than 70 HEMOGLOBIN A1C Routine 04/18/2025 9:47 AM EDT Type 2 diabetes mellitus with stage 3 chronic kidney disease, without long-term current use of insulin, unspecified whether stage 3a or 3b CKD ([facility] V24, [facility] V28) LIPID PANEL WITH REFLEX TO DIRECT LDL Routine 09/26/2024 3:01 PM EST Type 2 diabetes mellitus with diabetic cataract ([facility] V24, [facility] V28) URINE ALBUMIN CREATININE RATIO Routine 06/03/2024 [...] Laterality Modality Ultrasound us Provider [facility] US PROCEDURES Final Result * Hemoglobin A1c (04/18/2025 9:47 AM EDT) Hemoglobin A1C 6.1 <6.5 % LAB CHEMISTRY METHOD 04/18/2025 8:45 PM EDT [facility] Mean Bld Glu Estim. 128 mg/dL LAB CHEMISTRY METHOD 04/18/2025 8:45 PM EDT [facility] Blood Venous blood specimen / Unknown Venipuncture / Unknown 04/18/2025 9:47 AM EDT 04/18/2025 9:47 AM EDT us Anh Domingo MD LAB BLOOD ORDERABL ES Final Result [facility] [address] [place] [address], [place] [phone] * (ABNORMAL) Comprehensive metabolic panel (04/18/2025 9:47 AM EDT) Sodium 137 133 - 145 mmol/L LAB CHEMISTRY METHOD 04/18/2025 1:55 PM [facility] Potassium 4.3 3.5 - 5.5 mmol/L LAB CHEMISTRY METHOD 04/18/2025 1:55 PM [facility] Chloride 102 96 - 110 mmol/L LAB CHEMISTRY METHOD 04/18/2025 1:55 PM [facility] CO2 27 21 - 32 mmol/L LAB CHEMISTRY METHOD 04/18/2025 1:55 PM [facility] Anion Gap 8 3 - 11 LAB CHEMISTRY METHOD 04/18/2025 1:55 PM [facility] Glucose 90 70 - 100 mg/dL LAB CHEMISTRY METHOD 04/18/2025 1:55 PM [facility] BUN 21 5 - 25 mg/dL LAB CHEMISTRY METHOD 04/18/2025 1:55 PM [facility] Creatinine 1.02 0.50 - 1.10 mg/dL LAB CHEMISTRY METHOD 04/18/2025 1:55 PM [facility] eGFR 55(L) >=60 mL/min/1. 73m2 LAB CHEMISTRY METHOD 04/18/2025 1:55 PM [facility] Comment:Calculation based on the Chronic Kidney Disease Epidemiology Collaboration (CKD-EPI) equation refit without adjustment for race. BUN/Creatinine Ratio 20.6 LAB CHEMISTRY METHOD 04/18/2025 1:55 PM [facility] Calcium 9.7 8.5 - 10.5 mg/dL LAB CHEMISTRY METHOD 04/18/2025 1:55 PM [facility] AST (SGOT) 20 10 - 42 unit/L LAB CHEMISTRY METHOD 04/18/2025 1:55 PM [facility] ALT (SGPT) 17 10 - 60 unit/L LAB CHEMISTRY METHOD 04/18/2025 1:55 PM T [facility] Alkaline Phosphatase 78 42 - 121 unit/L LAB CHEMISTRY METHOD 04/18/2025 1:55 PM [facility] Total Protein 7.8 6.0 - 8.0 g/dL LAB CHEMISTRY METHOD 04/18/2025 1:55 PM [facility] Albumin 4.0 3.2 - 5.0 g/dL LAB CHEMISTRY METHOD 04/18/2025 1:55 PM [facility] Total Bilirubin 0.7 0.0 - 1.4 mg/dL LAB CHEMISTRY METHOD 04/18/2025 1:55 PM T [facility] Blood Venous blood specimen / Unknown Venipuncture / Unknown 04/18/2025 9:47 AM EDT 04/18/2025 9:47 AM EDT Anh Domingo MD LAB BLOOD ORDERABL ES Final Result [facility] [address] [place] [address], * Lipid panel with reflex to direct LDL (09/26/2024 3:01 PM EST) Cholesterol 151 0 - 200 mg/dL LAB CHEMISTRY METHOD 09/26/2024 6:23 PM EST [facility] Triglycerides 94 0 - 150 mg/dL LAB CHEMISTRY METHOD 09/26/2024 6:23 PM EST [facility] HDL 79 >=40 mg/dL LAB CHEMISTRY METHOD 09/26/2024 6:23 PM EST [facility] LDL Calculated 53 0 - 100 mg/dL LAB CHEMISTRY METHOD 09/26/2024 6:23 PM EST [facility] VLDL Cholesterol Migel 18.8 mg/dL LAB CHEMISTRY METHOD 09/26/2024 6:23 PM EST [facility] Non HDL Chol. (LDL+VLDL) 72 <145 mg/dL LAB CHEMISTRY METHOD 09/26/2024 6:23 PM EST [facility] Chol/HDL Ratio 1.9 0.0 - 4.4 LAB CHEMISTRY METHOD 09/26/2024 6:23 PM [facility] Blood Venous blood specimen / Unknown Venipuncture / Unknown 09/26/2024 3:01 PM EST 09/26/2024 3:01 PM EST Anh Domingo MD LAB BLOOD ORDERABL ES Final Result [facility] [address] [place] [address], [place] [phone] * Urine Albumin Creatinine Ratio (06/03/2024) [facility] Urine Albumin Creatinine Ratio abstracted Historical Provider HEALTH MAINTENANCE Final Result * Falls Risk Assessment (03/01/2024) [facility] Falls Risk Assessment abstracted Historical Provider HEALTH MAINTENANCE Final Result * Diabetes Foot Exam (03/01/2024) [facility] Diabetes: Annual Foot Exam abstracted Historical Provider HEALTH MAINTENANCE Final Result * Depression Screening (10/01/2023) [facility] Depression Screening abstracted [facility] Provider HEALTH MAINTENANCE Final Result * DXA [...] normal bone density by WHO criteria. [facility] Department of Internal Medicine recommends using National [...] alternative screening schedule based on jorgito Carpenter., [facility] November 13, 2011 for patients with osteopenia [...] normal bone density by WHO criteria. [facility] Department of Internal Medicine recommendsusing National Osteoporosis [...] FRAX. Optional alternative screening schedule based on peggy Carpenter al., [facility] for patients with osteopenia (based on hip BMD T-score) is as follows: * advanced osteopenia (T scores -2.00 to -2.49), BMD testing every year * moderate osteopenia (T scores -1.50 to -1.99), BMD testing every 5years mild osteopenia or normal BMD (T scores -1.50 and higher), BMD testingevery 15 years Michelle MACEDO IMStefan DXA PROCEDURES Final Result from Last 3 Months or Most Recently Relevant to Health Maintenance Insurance [employer] Advance Directives Documents on File Type Date Recorded 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
--- OUTSIDE RECORDS SUMMARY | 2025-10-12 12:19 | XMS_ITS | Clinical Summary ---
Author Organization [facility] Prior to 03/25/[address] [place] [address] Care Team Providers Care Senior Accounting Specialist Name Role Phone Lorenzo Kraft MD Primary Care Provider Social History Tobacco Use Types Packs/Day Years [...] age to complete this topic Care Teams Senior Accounting Specialist Relationship Specialty Start Date End Date Lorenzo Kraft MD PCP - General Internal Medicine 01/29/21
== END 2025-10-12 10:55 | disposition home or self-care (01) ==
LOC: HO.HPHYS 10:01
PROVIDERS: PCP Internal Medicine; Visit Provider Physician Assistant
DX: M67.441 Ganglion, right hand (principal)
CPT/HCPCS: 20612

== ENCOUNTER → 2025-10-12 10:00 | Outpatient (BNVA) | payer MEDICARE, SELFPAY | PROVIDERS: PCP Internal Medicine; Visit Provider Physician Assistant | DX: M67.432 Ganglion, left wrist (principal) | CPT/HCPCS: 20612 ==